=== PATIENT | female | born 2000 | race Hispanic/Latino ===

== ENCOUNTER 2020-06-01 17:06 | Emergency (ER) | payer OTHER ==
[~2020-06-01] VITALS: Ht 152.4 cm; Wt 58.0 kg
[~2020-06-01 17:06] MED LIST: NO HOME MEDS
[2020-06-01 19:31] VITALS: BP 119/81
== END 2020-06-01 19:31 | disposition home or self-care (01) | DRG 605 ==
LOC: ED 17:06
DX: S80.12XA Contusion of left lower leg, initial encounter (principal); V43.62XA Car passenger injured in collision with other type car in traffic accident, initial encounter